=== PATIENT | male | born 1955 | race Hispanic/Latino ===

== ENCOUNTER → 2019-08-21 | Day surgery (SDC) | payer OTHER ==
[2019-08-20 16:37] LABS: BASOPHILS # (AUTO) 0.1 (0.0-0.1); BASOPHILS % 0.8 % (0.0-1.0); EOSINOPHILS # (AUTO) 0.1 (0.0-0.4); HEMATOCRIT 48.3 % (38.2-49.6); HEMOGLOBIN 17.2 g/dL (14.0-18.0); LYMPHOCYTES # (AUTO) 2.1 (1.0-3.2); LYMPHOCYTES % 20.7 % (18.0-39.1); MEAN CORPUSCULAR HEMOGLOBIN 32.8 pg (28-32); MEAN CORPUSCULAR HGB CONC 35.6 g/dL (31-35); MONOCYTES # (AUTO) 0.9 (0.2-0.8); MONOCYTES % 8.6 % (4.4-11.3); NEUTROPHILS # (AUTO) 6.9 (2.1-6.9); NEUTROPHILS % 68.5 % (38.7-80.0); PLATELET COUNT 192 x10e3/uL (140-360); RED BLOOD COUNT 5.25 x10e6/uL (4.3-5.7)
[2019-08-20 16:53] LABS: BLOOD UREA NITROGEN 15 mg/dL (7-26); BUN/CREATININE RATIO 14 (6-25); CALCIUM 9.3 mg/dL (8.4-10.2); CARBON DIOXIDE 19 mmol/L (22-29); CHLORIDE 102 mmol/L (98-107); CREATININE, SERUM 1.09 mg/dL (0.72-1.25); EST GLOMERULAR FILTRATION RATE > 60 ML/MIN (60-); GLUCOSE 303 mg/dL (74-118); SODIUM 134 mmol/L (136-145)
[~2019-08-21] MED LIST: BACTRIM DS TAB1 EACH PO; CLEOCIN PH900 MG/6 M PO; EPHEDRINE SULFATE INJ 50 MG/ML VIAL ONE; FENTANYL CITRATE/PF 100MCG/2 ML INJ ONE; INSULIN REGULAR, HUMAN 100 UNIT/1 ML 3ML VIAL ONE; LIDOCAINE HCL 2% LOCAL INJ 5 ML SDV VIAL INJ ONE; ONDANSETRON HCL INJ 2MG/ML 2ML 2 MG/ML VIAL ONE; PROPOFOL IV EMULSION 10 MG/ML 20 ML VIAL ONE; SEVOFLURANE INHAL SOLN 250 ML PEN BTL ONE
[2019-08-21 14:00] VITALS: BP 119/69
--- NOTE | 2019-08-21 14:04 | Operative Report ---
DATE OF PROCEDURE: 08/21/2019 SURGEON: Navi Cook MD PREOPERATIVE DIAGNOSIS: Infected necrotic mass of the right buttock. POSTOPERATIVE DIAGNOSIS: Infected necrotic mass of the right buttock. OPERATION PERFORMED: Sharp debridement and excision of necrotic mass of the right buttock with drainage of abscess. ANESTHESIA: General. COMPLICATIONS: None. ESTIMATED BLOOD LOSS: Minimal. DESCRIPTION OF PROCEDURE: With the patient lying in bed in the lithotomy position under good general anesthesia the perineum was prepped with Betadine solution and draped in the usual manner. At the top of the right buttock, there was an area of necrosis with purulent discharge with a lot of hard tissue all the way around it consistent with some type of an abscess likely secondary to some kind of an insect bite. Using the knife the whole area that was necrotic was resected, creating a defect about 2 cm in size. There was a lot of necrotic subcutaneous tissue, which was similarly excised. There was a pocket extending upwardly that was similarly excised of all the subcutaneous tissue and once this was done, all of the necrotic tissue was removed. All the loculations were broken. Hemostasis was ascertained. The cavity was then irrigated with dilute Betadine solution, packed with 0.5 inch iodoform gauze. A dressing was applied. The sponge, lap, and needle counts were correct. The patient tolerated the procedure well and returned to the recovery room in stable condition. Navi Cook MD JLR/MODL /[id number]
== END | disposition home or self-care (01) ==
LOC: OR 08:06
PROVIDERS: ATTEND Surgery
DX: L02.31 Cutaneous abscess of buttock (principal); E11.9 Type 2 diabetes mellitus without complications; Z01.810 Encounter for preprocedural cardiovascular examination; Z01.812 Encounter for preprocedural laboratory examination; Z11.59 Encounter for screening for other viral diseases
CPT/HCPCS: 10061; 36415 ×2; 80048; 82948; 85025; 87635; 93005; J2001; J2405; J2704; J3010; J1817